=== PATIENT | female | born 1995 | race African-American/Black ===

== ENCOUNTER → 2017-01-25 | Outpatient (CLI) | payer OTHER | LOC: M WUC 10:20 | PROVIDERS: ATTEND Physician Assistant | DX: N91.1 Secondary amenorrhea (principal); N39.0 Urinary tract infection, site not specified ==

== ENCOUNTER 2017-03-11 12:18 | Emergency (ER) | payer OTHER ==
[~2017-03-11] VITALS: Ht 157.5 cm; Wt 57.2 kg
[2017-03-11] MEDS ORDERED: NS 1,000 ML IV ONE (13:00)
[2017-03-11] MEDS ORDERED: METOCLOPRAMIDE INJ 10MG/2ML VIAL (J2765) IV ONE (13:00)
[2017-03-11 13:38] LABS: BASO % 0.3 % (0.0-1.0); EOS # 0.1 K/mm3 (0.0-0.50); EOS % 1.3 % (0.0-3.0); LARGE UNSTAINED CELL # 0.2 K/mm3 (0.0-0.4); LARGE UNSTAINED CELL % 2.1 % (0.0-4.0); LYMPH # 1.6 K/mm3 (1.5-6.5); LYMPH % 23.3 % (24.0-44.0); MEAN CORPUSCULAR HEMOGLOBIN 30.6 pg (27.0-33.0); MEAN CORPUSCULAR HGB CONC 34.3 g/dl (32.0-36.5); MEAN CORPUSCULAR VOLUME 89.2 fl (80.0-96.0); MONO # 0.4 K/mm3 (0.0-0.8); NEUTROPHILS # 4.7 K/mm3 (1.8-7.7); PLATELET COUNT, AUTOMATED 302 k/mm3 (150-450); RED CELL DISTRIBUTION WIDTH 11.8 % (11.5-14.5)
--- NOTE | 2017-03-11 13:46 | ED PDOC ---
Post-Departure Follow-Up AT THIS TIME, MADE AWARE BY NURSING STAFF THAT PT WISHES TO LEAVE. AMA PAPERWORK FILLED OUT AT THIS TIME AND SIGNED BY PT. MARTIN FUENTES PA-C Mar 11, 2017 13:46
[2017-03-11 13:47] LABS: ANION GAP 7 MEQ/L (8-16); BLOOD UREA NITROGEN 7 MG/DL (7-18); CALCIUM LEVEL 8.6 MG/DL (8.5-10.1); CARBON DIOXIDE LEVEL 27 MEQ/L (21-32); CHLORIDE LEVEL 101 MEQ/L (98-107); CREATININE FOR GFR 0.43 MG/DL (0.55-1.02); GLOMERULAR FILTRATION RATE > 60.0 (>60); GLUCOSE, FASTING 76 MG/DL (70-105); MAGNESIUM LEVEL 2.1 MG/DL (1.8-2.4); POTASSIUM SERUM 3.9 MEQ/L (3.5-5.1); SODIUM LEVEL 135 MEQ/L (136-145)
[2017-03-11 13:53] VITALS: BP 103/55
== END 2017-03-11 13:54 | disposition left against medical advice (07) ==
LOC: M ED 13:04
DX: R10.84 Generalized abdominal pain (principal); I34.1 Nonrheumatic mitral (valve) prolapse; R51 Headache
CPT/HCPCS: 36415; 80048; 81001; 83735; 85025; 87086; 96374; 99283; J2765

== ENCOUNTER 2017-03-21 01:02 | Emergency (ER) | payer OTHER ==
[~2017-03-21] VITALS: Ht 157.5 cm; Wt 54.4 kg
[2017-03-21] MEDS ORDERED: PREN1TAB18 PO (01:16)
[2017-03-21 01:19] VITALS: BP 117/63
[2017-03-21 01:52] LABS: BASO % 0.4 % (0.0-1.0); EOS # 0.1 K/mm3 (0.0-0.50); LARGE UNSTAINED CELL # 0.1 K/mm3 (0.0-0.4); LARGE UNSTAINED CELL % 1.4 % (0.0-4.0); LYMPH # 2.5 K/mm3 (1.5-6.5); LYMPH % 28.5 % (24.0-44.0); MEAN CORPUSCULAR HGB CONC 35.6 g/dl (32.0-36.5); MEAN CORPUSCULAR VOLUME 89.9 fl (80.0-96.0); MONO # 0.4 K/mm3 (0.0-0.8); MONO % 4.8 % (0.0-5.0); NEUTROPHILS # 5.7 K/mm3 (1.8-7.7); PLATELET COUNT, AUTOMATED 293 k/mm3 (150-450); RED CELL DISTRIBUTION WIDTH 11.7 % (11.5-14.5); WHITE BLOOD COUNT 8.8 K/mm3 (4.0-10.0)
--- NOTE | 2017-03-21 02:30 | REPUSA ---
CLINICAL HISTORY: Bleeding. TECHNIQUE: Transabdominal ultrasound of the pelvis was performed. FINDINGS: Single, live intrauterine gestation. The crown-rump length measures 6.3 cm. This corresponds to an estimated gestational age of 12 weeks and 5 days. heart rate 169 beats per minute. motion was observed. Anterior placenta. No abnormality in the maternal adnexa/cul-de-sac. IMPRESSION: Single, live intrauterine gestation.
== END 2017-03-21 02:59 | disposition home or self-care (01) ==
LOC: M ED 02:41
DX: O20.0 Threatened abortion (principal); Z3A.12 12 weeks gestation of pregnancy; Z91.018 Allergy to other foods

== ENCOUNTER 2017-04-07 13:01 | Emergency (ER) | payer OTHER ==
[~2017-04-07] VITALS: Ht 157.5 cm; Wt 52.2 kg
[~2017-04-07 13:01] MED LIST: PREN1TAB18 PO
[2017-04-07 14:24] LABS: BASO % 0.2 % (0.0-1.0); EOS # 0.1 K/mm3 (0.0-0.50); EOS % 1.4 % (0.0-3.0); LARGE UNSTAINED CELL # 0.1 K/mm3 (0.0-0.4); LARGE UNSTAINED CELL % 1.4 % (0.0-4.0); LYMPH # 1.6 K/mm3 (1.5-6.5); LYMPH % 20.3 % (24.0-44.0); MEAN CORPUSCULAR HGB CONC 34.7 g/dl (32.0-36.5); MEAN CORPUSCULAR VOLUME 92.3 fl (80.0-96.0); MONO # 0.4 K/mm3 (0.0-0.8); MONO % 5.5 % (0.0-5.0); NEUTROPHILS # 5.6 K/mm3 (1.8-7.7); NEUTROPHILS % 71.3 % (36.0-66.0); PLATELET COUNT, AUTOMATED 292 k/mm3 (150-450); RED CELL DISTRIBUTION WIDTH 12.3 % (11.5-14.5); WHITE BLOOD COUNT 7.9 K/mm3 (4.0-10.0)
[2017-04-07 14:25] LABS: ANION GAP 6 MEQ/L (8-16); BLOOD UREA NITROGEN 6 MG/DL (7-18); CALCIUM LEVEL 9.1 MG/DL (8.5-10.1); CARBON DIOXIDE LEVEL 28 MEQ/L (21-32); CHLORIDE LEVEL 104 MEQ/L (98-107); CREATININE FOR GFR 0.36 MG/DL (0.55-1.02); GLOMERULAR FILTRATION RATE > 60.0 (>60); GLUCOSE, FASTING 72 MG/DL (70-105); POTASSIUM SERUM 3.5 MEQ/L (3.5-5.1); SODIUM LEVEL 138 MEQ/L (136-145)
--- NOTE | 2017-04-07 15:13 | REP ---
Obstetric sonography: History: Evaluation of at 16 weeks. Trauma. Findings: Scanning through the gravid uterus demonstrates a viable single intrauterine gestation in a breech lie. motion is observed and heart rate is recorded at 160 beats per minute. An anterior grade 0 placenta is seen without evidence of previa or abruption. Amniotic fluid is subjectively normal. Closed cervical length is 3.6 cm viewed transabdominally. No extrauterine abnormality is observed. There has been appropriate interval growth. No anomaly is seen. anatomic survey is incomplete due to early gestational age and position. The following anatomic structures are identified and felt to be unremarkable: cranium, choroid plexus, cavum, lungs, diaphragm, left-sided stomach, urinary bladder, spine, lower extremities. Biometry chart: BPD 3.1 cm = 15 weeks 5 days Head circumference 11.0 cm = 15 weeks 2 days Abdominal circumference 9.1 cm = 15 weeks 2 days Femur length 1.7 cm = 15 weeks 0 days Humeral length 1.7 cm = 14 weeks 6 days HC/AC ratio normal 1.2, cephalic index normal 0.8, estimated weight 118 grams, 0 pounds 4 ounces, 16th percentile for 15 weeks 6 days. Impression: Viable single intrauterine gestation at 15 weeks 2 days by today's composite sonographic criteria. Expected gestational age estimate based on prior sonography is 15 weeks 6 days. KIEL by prior sonography September 23, 2017. No abnormality or obstetric complication is identified. anatomic survey is incomplete. Signed by Lionel Flores MD 04/07/2017 03:17 P
[2017-04-07 16:05] VITALS: BP 106/66
== END 2017-04-07 16:06 | disposition home or self-care (01) ==
LOC: M ED 13:46
DX: G89.11 Acute pain due to trauma (principal); R10.31 Right lower quadrant pain; R10.32 Left lower quadrant pain; I34.1 Nonrheumatic mitral (valve) prolapse; Z3A.15 15 weeks gestation of pregnancy; Z91.018 Allergy to other foods; Z79.899 Other long term (current) drug therapy

== ENCOUNTER 2017-08-03 16:45 | Emergency (ER) | payer OTHER ==
[~2017-08-03] VITALS: Ht 157.5 cm; Wt 59.1 kg
[2017-08-03] MEDS ORDERED: NS 1,000 ML IV ONE ×2 (17:15→18:00)
[2017-08-03] MEDS ORDERED: diphenhydrAMINE INJ 50MG/ML VIAL (J1200) IV STA (17:23)
[2017-08-03] MEDS ORDERED: METOCLOPRAMIDE INJ 10MG/2ML VIAL (J2765) IV ONE (17:30)
[2017-08-03 17:41] LABS: BASO % 0.1 % (0.0-1.0); EOS # 0.1 K/mm3 (0.0-0.50); EOS % 1.3 % (0.0-3.0); LARGE UNSTAINED CELL # 0.2 K/mm3 (0.0-0.4); LYMPH # 1.4 K/mm3 (1.5-6.5); LYMPH % 15.4 % (24.0-44.0); MEAN CORPUSCULAR HEMOGLOBIN 32.9 pg (27.0-33.0); MEAN CORPUSCULAR HGB CONC 35.2 g/dl (32.0-36.5); MEAN CORPUSCULAR VOLUME 93.2 fl (80.0-96.0); MONO # 0.6 K/mm3 (0.0-0.8); MONO % 6.6 % (0.0-5.0); NEUTROPHILS # 6.6 K/mm3 (1.8-7.7); NEUTROPHILS % 74.6 % (36.0-66.0); PLATELET COUNT, AUTOMATED 300 k/mm3 (150-450); RED CELL DISTRIBUTION WIDTH 12.2 % (11.5-14.5); WHITE BLOOD COUNT 8.8 K/mm3 (4.0-10.0)
[2017-08-03 18:09] LABS: ALBUMIN 2.6 GM/DL (3.2-5.2); ALBUMIN/GLOBULIN RATIO 0.68 (1.00-1.93); ALKALINE PHOSPHATASE 74 U/L (45-117); ALT/SGPT 17 U/L (12-78); ANION GAP 9 MEQ/L (8-16); AST/SGOT 15 U/L (15-37); BILIRUBIN,TOTAL 0.2 MG/DL (0.2-1.0); BLOOD UREA NITROGEN 11 MG/DL (7-18); CALCIUM LEVEL 9.4 MG/DL (8.5-10.1); CARBON DIOXIDE LEVEL 24 MEQ/L (21-32); CHLORIDE LEVEL 107 MEQ/L (98-107); CREATININE FOR GFR 0.36 MG/DL (0.55-1.02); GLOMERULAR FILTRATION RATE > 60.0 (>60); GLUCOSE, FASTING 101 MG/DL (70-105); POTASSIUM SERUM 3.5 MEQ/L (3.5-5.1); SODIUM LEVEL 140 MEQ/L (136-145); T UPTAKE 24 % (30-39); THYROXINE (T4) 17.4 UG/DL (4.5-12.0); TOTAL PROTEIN 6.4 GM/DL (6.4-8.2)
[2017-08-03] MEDS ORDERED: KEFL500C17 PO (18:46)
[2017-08-03 19:12] VITALS: BP 103/63
--- NOTE | 2017-08-03 19:41 | ECGEPIP ---
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
== END 2017-08-03 19:18 | disposition home or self-care (01) ==
LOC: M ED 16:45
DX: O23.43 Unspecified infection of urinary tract in pregnancy, third trimester (principal); O21.9 Vomiting of pregnancy, unspecified; Z3A.31 31 weeks gestation of pregnancy; Z91.018 Allergy to other foods
CPT/HCPCS: 36415; 80053; 81001; 84436; 84443; 84479; 85025; 87086; 93005; 96374; 99284; J1200; J2765